=== PATIENT | male | born 1950 | race Caucasian/White ===

== ENCOUNTER 2022-03-19 11:31 | Day surgery (SDC) | payer OTHER ==
[~2022-03-19] VITALS: Ht 170.2 cm; Wt 81.6 kg
[2022-03-19] MEDS ORDERED: CENTRUM SILVER1 EAC2 (12:00)
[2022-03-19] MEDS ORDERED: OMEP20ER (12:00)
== END 2022-03-19 13:44 | disposition home or self-care (01) ==
LOC: ORSCSDS 11:31
PROVIDERS: Student in an Organized Health Care Education/Training Program
PROC: 0DBB8ZX Excision of Ileum, Via Natural or Artificial Opening Endoscopic, Diagnostic (ICD-10-PCS; principal; 2022-03-19 13:00)
PROC: 0DBN8ZX Excision of Sigmoid Colon, Via Natural or Artificial Opening Endoscopic, Diagnostic (ICD-10-PCS; principal; 2022-03-19 13:00)
PROC: 0DBH8ZX Excision of Cecum, Via Natural or Artificial Opening Endoscopic, Diagnostic (ICD-10-PCS; principal; 2022-03-19 13:00)
PROC: 0DBL8ZX Excision of Transverse Colon, Via Natural or Artificial Opening Endoscopic, Diagnostic (ICD-10-PCS; principal; 2022-03-19 13:00)
DX: Z12.11 Encounter for screening for malignant neoplasm of colon (principal); Z86.010 Personal history of colon polyps; D12.3 Benign neoplasm of transverse colon; D12.5 Benign neoplasm of sigmoid colon; K57.30 Diverticulosis of large intestine without perforation or abscess without bleeding; K64.8 Other hemorrhoids; K62.89 Other specified diseases of anus and rectum; K21.9 Gastro-esophageal reflux disease without esophagitis; F41.9 Anxiety disorder, unspecified; E03.9 Hypothyroidism, unspecified; F43.10 Post-traumatic stress disorder, unspecified; Z79.899 Other long term (current) drug therapy
CPT/HCPCS: 88305; J2704; J7120